=== PATIENT | male | born 1965 | race Caucasian/White ===

== ENCOUNTER 2021-03-14 17:22 | Emergency (ER) | payer OTHER ==
[~2021-03-14] VITALS: Ht 172.7 cm; Wt 86.4 kg
[~2021-03-14 17:22] MED LIST: ATOR40TA PO; BUPR300T94 PO; HYDR-3241 PO; ONDA4TAB7 PO
[2021-03-14] MEDS ORDERED: SODIUM CHLORIDE 0.9% 1,000ML IVBOLUS ONE (18:30)
[2021-03-14] MEDS ORDERED: ACETAMINOPHEN 325 MG TABLET PO ONE (18:30)
[2021-03-14] MEDS ORDERED: KETOROLAC 30 MG/1 ML IVPush ONE (18:30)
[2021-03-14] MEDS ORDERED: KETOROLAC 30 MG/1 ML ONE (18:44)
[2021-03-14] MEDS ORDERED: ACETAMINOPHEN 325 MG TABLET ONE (18:45)
[2021-03-14 19:09] LABS: ALANINE AMINOTRANSFERASE 62 U/L (12-78); ALBUMIN 3.5 g/dL (3.4-5.0); ANION GAP 8 mmol/L (5-15); CALCIUM 8.3 mg/dL (8.5-10.1); CHLORIDE 102 mmol/L (98-107); CREATININE 1.16 mg/dL (0.7-1.3)
[2021-03-14 19:11] LABS: ALKALINE PHOSPHATASE 79 U/L (45-117); BILIRUBIN,TOTAL 1.3 mg/dL (0.2-1.0); TOTAL PROTEIN 7.2 g/dL (6.4-8.2)
[2021-03-14 19:16] LABS: BASOPHILS % (AUTO) 0 % (0-1); EOSINOPHILS % (AUTO) 0 % (1-7); LYMPHOCYTES % (AUTO) 6 % (22-44); MEAN CORPUSCULAR HEMOGLOBIN 31.6 pg (27.5-34.5); MEAN CORPUSCULAR HGB CONC 34.2 g/dL (33.2-36.2); MEAN PLATELET VOLUME 8.8 fL (7.4-10.4); MONOCYTES % (AUTO) 9 % (2-9); NEUTROPHILS % (AUTO) 84 % (42-75); PLATELET COUNT 204 x10^3/uL (130-400); RED BLOOD COUNT 4.63 x10^6/uL (4.38-5.82); RED CELL DISTRIBUTION WIDTH 13.4 % (9.4-14.8)
[2021-03-14 19:34] LABS: MICROSCOPIC AUTO
[2021-03-14] MEDS ORDERED: CEFTRIAXONE 1,000 MG in DEXTROSE 5% 50 ML IVPB ONE (20:00)
--- NOTE | 2021-03-14 20:11 | NUR ---
PT BACK FROM CT
[2021-03-14] MEDS ORDERED: OMNIPAQUE 350 MG/ML, 100ML BOTTLE ONE (20:25)
[2021-03-14 21:08] VITALS: BP 147/82
== END 2021-03-14 21:11 | disposition home or self-care (01) ==
LOC: ED 17:52
DX: N30.00 Acute cystitis without hematuria (principal); R11.2 Nausea with vomiting, unspecified; E11.9 Type 2 diabetes mellitus without complications; E78.00 Pure hypercholesterolemia, unspecified
CPT/HCPCS: 36415; 74177; 80053; 81001; 83690; 85025; 87077; 87086; 87186; 96361; 96365; 96375; 99285; J0696; J1885; J7030; Q9967